=== PATIENT | male | born 1995 | race Caucasian/White ===

== ENCOUNTER 2018-10-12 12:07 | Outpatient (CLI) | payer OTHER ==
--- NOTE | 2018-10-12 14:34 | ULT ---
ULTRASOUND SOFT TISSUE OTHER: Date: 10/12/18 HISTORY: Suprapubic lump. COMPARISON: None. FINDINGS: Real-time [place] scale and color evaluation of the soft tissues performed. There is an isoechoic mass i n the subcutaneous soft tissues just deep to the skin surface. This measures 2.5 x 1.2 x 2.2 cm. IMPRESSION: Findings most likely representing a lipoma. Follow-up can be obtained. If there is interval growth or pain, MRI could be obtained. POS: JOE
== END 2018-10-12 12:08 | disposition home or self-care (01) ==
LOC: BICULT 12:07
PROVIDERS: ATTEND Family Medicine
DX: R19.09 Other intra-abdominal and pelvic swelling, mass and lump (principal)
CPT/HCPCS: 36415; 76999; 80053; 80061; 83036; 84443; 85025

== ENCOUNTER 2019-08-18 01:00 | Emergency (ER) | payer OTHER ==
[2019-08-18 01:40] LABS: #Basophils 0.1 thou/uL (0.0-0.2); #Eosinphils 0.1 thou/uL (0.0-0.7); #Lymphocytes 3.8 thou/uL (1.20-3.40); #Monocytes 0.5 thou/uL (0.11-0.59); %Basophils 0.9 % (0.0-1.0); %Eosinophils 1.7 % (0.0-10.0); %Lymphocytes 44.4 % (21.0-51.0); Hemoglobin 14.4 g/dL (14.0-18.0); Mean Corpuscular HGB CONC 35.4 g/dL (32.0-36.0); Mean Corpuscular Hemoglobin 28.7 pg (27.0-31.0); Mean Platelet Volume 7.9 fL (7.4-10.4); Platelet Count 190 thou/uL (130-400); RBC Distribution Width 10.9 % (11.5-14.5); Red Blood Cell (RBC) Count 5.01 mill/uL (4.70-6.10); White Blood Cell (WBC) Count 8.6 thou/uL (4.8-10.8)
== END 2019-08-18 01:46 | disposition home or self-care (01) ==
LOC: SCSER 01:00
DX: K92.1 Melena (principal)
CPT/HCPCS: 82274; 85025; 99283